=== PATIENT | female | born 1945 | race Caucasian/White ===

== ENCOUNTER 2016-05-04 09:54 | Outpatient (CLI) | payer MEDICARE, OTHER | END 2016-05-04 09:55 | disposition home or self-care (01) | DX: I48.0 Paroxysmal atrial fibrillation (principal); I63.9 Cerebral infarction, unspecified; R41.3 Other amnesia; M17.0 Bilateral primary osteoarthritis of knee ==

== ENCOUNTER 2016-06-16 09:44 | Outpatient (CLI) | payer MEDICARE, OTHER | END 2016-06-16 09:45 | disposition home or self-care (01) | DX: E55.9 Vitamin D deficiency, unspecified (principal); K62.5 Hemorrhage of anus and rectum; E53.8 Deficiency of other specified B group vitamins ==

== ENCOUNTER 2016-08-05 09:32 | Emergency (ER) | payer MEDICARE, OTHER ==
--- NOTE | 2016-08-05 10:31 | XRAY Preliminary Report ---
Exam: XR Chest 2 View PA/LAT IMPRESSION: Cardiovascular fullness with small left effusion in a patient with underlying COPD, possi ble congestive failure. [facility] SITE ID: [id number]
--- NOTE | 2016-08-05 10:33 | XRAY Report ---
EXAM: CHEST RADIOGRAPHY EXAM DATE: 08/05/2016 09:42 AM. CLINICAL HISTORY: Hypoxic. COMPARISON: None. TECHNIQUE: 2 views. FINDINGS: Lungs/Pleura: Hyper expanded with flattened diaphragm and coarse lung markings typical of COPD. Occas ional septal lines. No definite acute infiltrate, consolidation, or pneumothorax. Small left pleural effusion. Mediastinum: Mild cardiomegaly. Diffuse vascular fullness. Other: Degenerative changes. IMPRESSION: Cardiovascular fullness with small left effusion in a patient with underlying COPD, possi ble congestive failure. [facility] Referring Provider Line: [phone] SITE ID: [id number]
--- NOTE | 2016-08-05 10:46 | ED Physician Documentation ---
History of Present Illness - Stated complaint Stated Complaint: SOA - Chief complaint Chief Complaint: Resp - Additonal information Additional information: hx from pt 71 female hx a fib and CHF was on xarelto but dced it 2/2 side effects went to PMD today just for fup was found to be profoundly hypoxic pt denies fever cough CP palp she has had nafisa LE swelling recently Review of Systems Constitutional: denies: Fever, Chills Throat: denies: Sore throat Cardiac: denies: Chest pain / pressure, Palpitations Respiratory: reports: Dyspnea. 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 - Present Medications Home Medications: Ambulatory Orders Medication Instructions Recorded Confirmed Aspirin 81 mg PO DAILY 07/17/12 07/17/12 Atenolol 25 mg PO DAILY 07/17/12 07/17/12 Cholecalciferol (Vitamin D3) 55,000 unit PO DAILY 07/17/12 07/17/12 [Vitamin D-3] Levothyroxine Sodium [Synthroid] 88 mcg DAILY 07/17/12 07/17/12 Oxybutynin [Ditropan] 5 mg PO DAILY 07/17/12 07/17/12 Telmisartan [Micardis] 40 mg PO DAILY 07/17/12 07/17/12 oxyCODONE/ACET 5/325 [Percocet 5 1 each PO Q4-6H PRN #15 tablet 07/17/12 mg/325 mg] HYDROcod/ACETAM 5/325 [Vicodin 1 - 2 ea PO Q6H PRN #15 tablet 08/02/12 5/325] Ibuprofen [Motrin] 800 mg PO Q8H PRN #30 tablet 08/02/12 Furosemide [Lasix] 40 mg PO DAILY #7 tablet 08/05/16 - Allergies Allergies/Adverse Reactions: Allergies Allergy/AdvReac Type Severity Reaction Status Date / Time aspirin AdvReac Mild Nausea Verified 07/17/12 10:05 caffeine AdvReac Mild Nausea Verified 07/17/12 10:05 - Social History Does the pt smoke?: No Smoking Status: Never smoker Does the pt drink ETOH?: Yes Does the pt have substance abuse?: No - Immunizations Immunizations are current?: No Immunizations: TDAP >10years/unknown PD ED PE NORMAL - Vitals Vital signs reviewed: Yes - General General: Alert and oriented X 3 - Cardiac Cardiac: RRR - Respiratory Respiratory: Other (faint crackles nafisa bases) - Abdomen Abdomen: Soft, Non tender - Extremities Extremities: Other (+ nafisa edema) - Neuro Neuro: Alert and oriented X 3, No motor deficit Results - Vitals Vitals: Vital Signs - 24 hr 08/05/16 08/05/16 08/05/16 09:56 10:40 12:04 Temperature 36.3 C L Heart Rate 84 61 59 L Respiratory 24 18 16 Rate Blood Pressure 139/97 H 129/80 142/67 H O2 Saturation 90 L 98 100 08/05/16 08/05/16 08/05/16 12:42 14:32 14:38 Temperature Heart Rate 75 124 H 83 Respiratory 21 22 Rate Blood Pressure 146/78 H 159/88 H O2 Saturation 95 75 L 91 L Oxygen O2 Source Room air - EKG (time done) 1104 Rate: Rate (enter#) (63) Rhythm: Atrial fibrillation Intervals: Prolonged QT (< 1/2 R->R) Ischemia: Non specific changes - Labs Labs: Laboratory Tests 08/05/16 08/05/16 08/05/16 11:09 11:09 11:09 WBC 7.3 RBC 3.87 L Hgb 12.1 Hct 37.2 MCV 96.1 MCH 31.3 H MCHC 32.6 RDW 16.0 H Plt Count 165 MPV 8.7 Neut # 5.9 Lymph # 0.7 L Teller # 0.6 Eos # 0.1 Baso # 0.1 Absolute Nucleated RBC 0.00 Nucleated RBCs 0.0 D-Dimer 658.6 H Sodium 143 Potassium 4.4 Chloride 107 Carbon Dioxide 29 Anion Gap 7.0 BUN 35 H Creatinine 1.1 H Estimated GFR (MDRD) 49 L Glucose 99 Calcium 10.0 B-Natriuretic Peptide 08/05/16 11:09 WBC RBC Hgb Hct MCV MCH MCHC RDW Plt Count MPV Neut # Lymph # Teller # Eos # Baso # Absolute Nucleated RBC Nucleated RBCs D-Dimer Sodium Potassium Chloride Carbon Dioxide Anion Gap BUN Creatinine Estimated GFR (MDRD) Glucose Calcium B-Natriuretic Peptide 411 H - Rads (name of study) CXR Radiology: See rad report (cardiovascular fullness with small l pleural effusion possible CHF and underlying COPD) CTPA Radiology: See rad report (no PE, vascular distension c/w pulm edema) PD MEDICAL DECISION MAKING - ED course ED course: profound hypoxia out of proportion to CHF on CXR and BNP, will give lasix etc but must also consider PE, d dimer +, GFR too low for CTA, will rec admit for hypoxia and further eval for PE such as VQ VQ not available at [facility] at this time spoke to rad and pt got CT with mod contrast - no PE given a dose of lasix and now sats are better recommended admission but pt very reluctant explained I recommended serial trop and echo etc and she declines so i said if her O2 levels are 90% or better on RA would consider dc though not ideal care but sat drops to 60% with ambulation, I strongly strongly recommended she stay - explained my concerns and benefits of staying - pt still refuses- refuses while on O2 and sat is up so do not think irrational 2/2 hypoxia - I tried to enlist her family but they support her decision - I asked RT to set her up for home oxygen but she refuses to even stay to arrange that - pt left AMA despite attempts to convince her to stay -I called her PMD and they will call her and try to convince her to come back Departure - Departure Disposition: 07 Against Medical Advice Clinical Impression: Hypoxia Congestive heart failure Qualifiers: Congestive heart failure type: unspecified congestive heart failure type Congestive heart failure chronicity: unspecified congestive heart failure chronicity Qualified Code(s): I50.9 - Heart failure, unspecified Condition: Serious Instructions: ED CHF General Follow-Up: Renea Hall PA-C [Primary Care Provider] - Prescriptions: Furosemide [Lasix] 40 mg PO DAILY #7 tablet Comments: Your oxygen levels are dangerously low You do not have a blood clot in your lungs. You do have some congestive heart failure and evidence of right heart strain and coronary artery disease but this does not fully explain your very low oxygen levels I have strongly recommended that you stay in the hospital for further work up and care but you have declined. You are leaving against medical advise. By leaving you risk worsening symptoms, suffering permanent injury, loss of present life style, even I have asked the respiratory team to get you oxygen at home but it will take them a little while to get this set up - do not smoke while on oxygen If at any time you change your mind and want to get the recommended medical care , please come back to the hospital right away, we would be happy to see you and continue to take care of you Please follow up with your PMD for a recheck next working day - you need to have your kidney function checked at that time because you got a diuretic as well as CT contrast Discharge Date/Time: 08/05/16 15:36
[2016-08-05 11:19] LABS: BASOPHILS # (AUTO) 0.1 10^3/uL (0.0-0.1); BASOPHILS % (AUTO) 0.8 %; EOSINOPHILS # (AUTO) 0.1 10^3/uL (0.0-0.7); EOSINOPHILS % (AUTO) 0.9 %; HCT - HEMATOCRIT 37.2 % (37.0-47.0); HGB - HEMOGLOBIN 12.1 g/dL (12.0-16.0); LYMPHOCYTES # (AUTO) 0.7 10^3/uL (1.5-3.5); LYMPHOCYTES % (AUTO) 9.3 %; MEAN CORPUSCULAR HEMOGLOBIN 31.3 pg (27.0-31.0); MEAN CORPUSCULAR HGB CONC 32.6 g/dL (32.0-36.0); MEAN CORPUSCULAR VOLUME 96.1 fL (81.0-99.0); MEAN PLATELET VOLUME 8.7 fL (7.9-10.8); MONOCYTES # (AUTO) 0.6 10^3/uL (0.0-1.0); NEUTROPHILS # (AUTO) 5.9 10^3/uL (1.5-6.6); RED BLOOD COUNT 3.87 10^6/uL (4.20-5.40); UNCORRECTED WHITE BLOOD COUNT 7.3 x10^3/uL; WHITE BLOOD COUNT 7.3 x10^3/uL (4.8-10.8)
[2016-08-05 11:26] LABS: CREATININE 1.1 mg/dL (0.4-1.0); POTASSIUM 4.4 mmol/L (3.5-5.0)
[2016-08-05] MEDS ORDERED: FUROSEMIDE 40 MG/4 ML VIAL IVP STA (11:51)
[2016-08-05] MEDS ORDERED: FUROSEMIDE 40 MG/4 ML VIAL ONE (11:56)
[2016-08-05] MEDS ORDERED: IOPAMIDOL-300 100 ML VIAL IVP ONE (13:09)
--- NOTE | 2016-08-05 13:43 | CT Preliminary Report ---
Exam: CT Chest Angio (PE) IMPRESSION: 1. No evidence of pulmonary embolus. 2. Vascular distention with minimal interlobular septal thickening and trace bilateral pleural effusi ons consistent with volume overload/pulmonary edema. 3. Atherosclerosis including coronary atherosclerosis. [facility] SITE ID: [id number]
--- NOTE | 2016-08-05 13:46 | CT Report ---
EXAM: CT ANGIOGRAM CHEST EXAM DATE: 08/05/2016 01:14 PM. CLINICAL HISTORY: Hypoxia and elevated d-dimer. COMPARISON: None. TECHNIQUE: Routine helical imaging was performed through the chest in the pulmonary arterial phase. I V Contrast: Amt/type. Reconstructions: Coronal 3-D MIP reconstructions.Sagittal and coronal. In accordance with CT protocol optimization, one or more of the following dose reduction techniques w ere utilized for this exam: automated exposure control, adjustment of mA and/or KV based on patient s ize, or use of iterative reconstructive technique. FINDINGS: Pulmonary Arteries: Diagnostic quality: Adequate through the segmental arteries. No evidence for acute or chronic pulmona ry emboli. Mild pulmonary artery dilation centrally with rapid tapering. Lungs/Pleura: Trace bilateral pleural effusions with vascular distention and mild mosaic perfusion pa ttern. Slight interlobular septal thickening right lung base Mediastinum: Pretracheal lymph node measures up to 16 mm in short axis. No pericardial effusion. Kirill nary atherosclerosis. Thoracic Aorta: Unremarkable. Upper Abdomen: Unremarkable. Other: Mild degenerative disk disease thoracic spine. IMPRESSION: 1. No evidence of pulmonary embolus. 2. Vascular distention with minimal interlobular septal thickening and trace bilateral pleural effusi ons consistent with volume overload/pulmonary edema. 3. Atherosclerosis including coronary atherosclerosis. [facility] Referring Provider Line: [phone] SITE ID: [id number]
[2016-08-05 14:39] VITALS: BP 159/88
== END 2016-08-05 15:36 | disposition left against medical advice (07) ==
LOC: ED 09:32
DX: R09.02 Hypoxemia (principal); I11.0 Hypertensive heart disease with heart failure; I50.9 Heart failure, unspecified; I48.91 Unspecified atrial fibrillation; Z79.82 Long term (current) use of aspirin; I25.10 Atherosclerotic heart disease of native coronary artery without angina pectoris; Z53.20 Procedure and treatment not carried out because of patient's decision for unspecified reasons
CPT/HCPCS: 36415; 71020; 71275; 80048; 83880; 85025; 85379; 93005; 93010; 96374; 99283; 99284; Q9967; 81001; 81003; 87086

== ENCOUNTER 2017-02-07 10:20 | Outpatient (CLI) | payer MEDICARE, OTHER ==
[2017-02-07 19:15] LABS: BASOPHILS % (AUTO) 0.4 %; EOSINOPHILS % (AUTO) 0.3 %; HCT - HEMATOCRIT 41.7 % (37.0-47.0); HGB - HEMOGLOBIN 13.5 g/dL (12.0-16.0); LYMPHOCYTES # (AUTO) 0.8 10^3/uL (1.5-3.5); LYMPHOCYTES % (AUTO) 10.3 %; MEAN CORPUSCULAR HEMOGLOBIN 31.2 pg (27.0-31.0); MEAN CORPUSCULAR HGB CONC 32.3 g/dL (32.0-36.0); MEAN CORPUSCULAR VOLUME 96.5 fL (81.0-99.0); MEAN PLATELET VOLUME 10.7 fL (7.9-10.8); MONOCYTES # (AUTO) 0.4 10^3/uL (0.0-1.0); MONOCYTES % (AUTO) 5.9 %; NEUTROPHILS # (AUTO) 6.2 10^3/uL (1.5-6.6); NEUTROPHILS % (AUTO) 83.1 %; RED BLOOD COUNT 4.32 10^6/uL (4.20-5.40); RED CELL DISTRIBUTION WIDTH 15.3 % (12.0-15.0); UNCORRECTED WHITE BLOOD COUNT 7.4 x10^3/uL; WHITE BLOOD COUNT 7.4 x10^3/uL (4.8-10.8)
[2017-02-07 19:17] LABS: THYROID STIMULATING HORMONE 2.18 uIU/mL (0.34-5.60)
== END 2017-02-07 10:21 | disposition home or self-care (01) ==
LOC: LAB.WCP 10:20
PROVIDERS: ATTEND Physician Assistant Medical
DX: L65.9 Nonscarring hair loss, unspecified (principal)
CPT/HCPCS: 36415; 82607; 84443; 85025

== ENCOUNTER 2017-10-24 08:00 | Outpatient (CLI) | payer MEDICARE, OTHER ==
[2017-10-24 12:12] LABS: BASOPHILS % (AUTO) 0.3 %; EOSINOPHILS # (AUTO) 0.2 10^3/uL (0.0-0.7); EOSINOPHILS % (AUTO) 2.3 %; HGB - HEMOGLOBIN 13.6 g/dL (12.0-16.0); LYMPHOCYTES # (AUTO) 1.5 10^3/uL (1.5-3.5); LYMPHOCYTES % (AUTO) 20.5 %; MEAN CORPUSCULAR HEMOGLOBIN 31.8 pg (27.0-31.0); MEAN CORPUSCULAR HGB CONC 33.6 g/dL (32.0-36.0); MEAN CORPUSCULAR VOLUME 94.6 fL (81.0-99.0); MEAN PLATELET VOLUME 10.1 fL (7.9-10.8); MONOCYTES # (AUTO) 0.6 10^3/uL (0.0-1.0); MONOCYTES % (AUTO) 8.7 %; NEUTROPHILS % (AUTO) 68.2 %; PLT - PLATELET COUNT 153 10^3/uL (130-450); RED BLOOD COUNT 4.28 10^6/uL (4.20-5.40); RED CELL DISTRIBUTION WIDTH 14.5 % (12.0-15.0); WHITE BLOOD COUNT 7.3 x10^3/uL (4.8-10.8)
[2017-10-24 12:33] LABS: ALBUMIN/GLOBULIN RATIO 1.3 (1.0-2.2); ALKALINE PHOSPHATASE 58 IU/L (42-121); ALT ALANINE AMINOTRANSFERASE 10 IU/L (10-60); AST ASPARTATE AMINOTRANSFERASE 16 IU/L (10-42); BILIRUBIN,TOTAL 0.6 mg/dL (0.2-1.0); BUN - BLOOD UREA NITROGEN 25 mg/dL (6-20); CARBON DIOXIDE - CO2 29 mmol/L (21-32); CHLORIDE 104 mmol/L (101-111); CHOL/HDL RATIO 3.3 (<4.4); CHOLESTEROL 195 mg/dL; CREATININE 0.9 mg/dL (0.4-1.0); GFR - MDRD 62 (>89); GLUCOSE 100 mg/dL (70-100); HDL CHOLESTEROL 59 mg/dL; LDL CHOLESTEROL,CALCULATED 114 mg/dL; LDL/HDL RATIO 1.9 (<4.4); SODIUM 141 mmol/L (135-145); TOTAL PROTEIN 7.2 g/dL (6.7-8.2); VLDL CHOLESTEROL 22 mg/dL
[2017-10-24 12:40] LABS: THYROID STIMULATING HORMONE 3.15 uIU/mL (0.34-5.60)
[2017-10-25 10:03] LABS: HEPATITIS C ANTIBODY NON-REACTIVE (NON-REACTIVE)
== END 2017-10-24 08:01 ==
LOC: LAB.WCP 08:00
PROVIDERS: ATTEND Physician Assistant Medical
DX: I10 Essential (primary) hypertension (principal); E55.9 Vitamin D deficiency, unspecified; E53.8 Deficiency of other specified B group vitamins; I48.0 Paroxysmal atrial fibrillation; Z11.59 Encounter for screening for other viral diseases
CPT/HCPCS: 36415; 80053; 80061; 82306; 82607; 83721; 84443; 85025; 86803

== ENCOUNTER 2018-10-17 08:00 | Outpatient (CLI) | payer MEDICARE, OTHER ==
[2018-10-17 12:15] LABS: BASOPHILS % (AUTO) 0.4 %; EOSINOPHILS # (AUTO) 0.1 10^3/uL (0.0-0.7); EOSINOPHILS % (AUTO) 1.1 %; HGB - HEMOGLOBIN 12.6 g/dL (12.0-16.0); LYMPHOCYTES # (AUTO) 1.1 10^3/uL (1.5-3.5); LYMPHOCYTES % (AUTO) 14.3 %; MEAN CORPUSCULAR HEMOGLOBIN 29.9 pg (27.0-31.0); MEAN CORPUSCULAR HGB CONC 29.3 g/dL (32.0-36.0); MEAN CORPUSCULAR VOLUME 102.1 fL (81.0-99.0); MEAN PLATELET VOLUME 11.1 fL (7.9-10.8); MONOCYTES # (AUTO) 0.6 10^3/uL (0.0-1.0); NEUTROPHILS % (AUTO) 75.8 %; PLT - PLATELET COUNT 166 10^3/uL (130-450); RED BLOOD COUNT 4.21 10^6/uL (4.20-5.40); RED CELL DISTRIBUTION WIDTH 15.7 % (12.0-15.0); WHITE BLOOD COUNT 7.9 x10^3/uL (4.8-10.8)
[2018-10-17 12:36] LABS: ALBUMIN 4.4 g/dL (3.2-5.5); ALBUMIN/GLOBULIN RATIO 1.4 (1.0-2.2); ALKALINE PHOSPHATASE 56 IU/L (42-121); ALT ALANINE AMINOTRANSFERASE 13 IU/L (10-60); AST ASPARTATE AMINOTRANSFERASE 23 IU/L (10-42); BILIRUBIN,TOTAL 1.3 mg/dL (0.2-1.0); BUN - BLOOD UREA NITROGEN 25 mg/dL (6-20); CALCIUM 10.3 mg/dL (8.5-10.3); CARBON DIOXIDE - CO2 25 mmol/L (21-32); CHLORIDE 107 mmol/L (101-111); CHOL/HDL RATIO 2.9 (<4.4); CHOLESTEROL 140 mg/dL; CREATININE 1.1 mg/dL (0.4-1.0); GFR - MDRD 49 (>89); GLUCOSE 111 mg/dL (70-100); HDL CHOLESTEROL 49 mg/dL; LDL CHOLESTEROL,CALCULATED 76 mg/dL; LDL/HDL RATIO 1.6 (<4.4); SODIUM 143 mmol/L (135-145); TOTAL PROTEIN 7.6 g/dL (6.7-8.2); VLDL CHOLESTEROL 15 mg/dL
== END 2018-10-17 23:59 | disposition home or self-care (01) ==
LOC: LAB.WCP 08:00
PROVIDERS: ATTEND Physician Assistant Medical
DX: I10 Essential (primary) hypertension (principal); E53.8 Deficiency of other specified B group vitamins; E03.9 Hypothyroidism, unspecified
CPT/HCPCS: 36415; 80053; 80061; 82607; 83721; 84443; 85025

== ENCOUNTER 2019-04-15 14:57 | Outpatient (CLI) | payer MEDICARE, OTHER ==
--- NOTE | 2019-04-16 14:47 | XRAY Report ---
Reason: RIGHT 3RD FINGER PAIN Procedure Date: 04/15/2019 Accession Number: [id number] / [id number] Procedure: WCP - Finger(s) RT CPT Code: Addended Final Report FULL RESULT: EXAM: RIGHT RING FINGER DIGIT RADIOGRAPHY EXAM DATE: 04/15/2019 02:57 PM. CLINICAL HISTORY: RIGHT 3RD FINGER PAIN. COMPARISON: HAND 2 VIEW LT 04/15/2019 2:34 PM WRIST 3 VIEW LT 04/15/2019 2:36 PM. TECHNIQUE: 3 views. FINDINGS: Bones: There is a 0.9 x 0.8 x 0.5 cm lucent lesion within distal aspect of right ring finger middle phalanx. 1.5 x 4 mm ossific density along the dorsal aspect of DIP joint on the lateral view is concerning for displaced avulsion, originating from base of distal phalanx. Joints: Erosive changes along right ring finger distal interphalangeal joint with fragmented appearance. Soft Tissues: Mild ring finger soft tissue swelling. No soft tissue gas demonstrated. IMPRESSION: 1. Erosive changes involving right ring finger distal interphalangeal joint. Question septic joint with adjacent osteomyelitis versus erosive osteoarthritis or other process. 2. A 1.5 x 4 mm ossific density along the dorsal aspect of DIP joint on the lateral view is concerning for displaced avulsion, originating from base of distal phalanx. 3. A 9 mm ovoid cystic lesion within distal aspect of right ring finger middle phalanx. Question bone cyst or destructive change. 4. Recommend clinical correlation and consider MRI with and without contrast to further characterize. [facility] ADDENDUM: 04/16/19 15:13 The above call report findings were discussed with Renea Hall by Dr. Alex Wilson at 03:13 PM on 04/16/2019. Date of injury was approximately 2 months ago. Suggest hand surgery consult regarding right ring finger DIP joint and middle phalangeal abnormalities.
--- NOTE | 2019-04-16 14:55 | XRAY Report ---
Reason: LEFT WRIST PAIN Procedure Date: 04/15/2019 Accession Number: [id number] / [id number] Procedure: WCP - Wrist 3 View LT CPT Code: Final Report FULL RESULT: EXAM: LEFT WRIST RADIOGRAPHY EXAM DATE: 04/15/2019 02:57 PM. CLINICAL HISTORY: LEFT WRIST PAIN. COMPARISON: KNEE 2 VIEW BILAT 02/23/2016 4:18 PM. TECHNIQUE: 3 views. FINDINGS: Bones: Irregular contour along the base of ulnar styloid with probable displaced ulnar styloid avulsion. Joints: Left first carpometacarpal joint space narrowing with subchondral sclerosis. Probable adjacent secondary ossicle. Narrowing of radiocarpal joint space with [id number] appearance and subchondral sclerosis along the lunate and distal radius. Prominent scapholunate interval. Soft Tissues: Extensive atherosclerotic arterial calcifications. IMPRESSION: 1. Irregular contour along the base of ulnar styloid with probable displaced ulnar styloid avulsion. 2. Radiocarpal joint degenerative changes. Prominent scapholunate interval, raising concern for scapholunate advanced collapse. 3. Advanced first carpometacarpal joint degenerative changes. [facility]
--- NOTE | 2019-04-16 14:58 | XRAY Report ---
Reason: LEFT HAND PAIN Procedure Date: 04/15/2019 Accession Number: [id number] / [id number] Procedure: WCP - Hand 2 View LT CPT Code: Final Report FULL RESULT: EXAM: LEFT HAND RADIOGRAPHY EXAM DATE: 04/15/2019 02:57 PM. CLINICAL HISTORY: LEFT HAND PAIN. COMPARISON: WRIST 3 VIEW LT 04/15/2019 2:36 PM. TECHNIQUE: 2 views. FINDINGS: Bones: Probable displaced ulnar styloid avulsion. Joints: Narrowing of left index finger distal interphalangeal joint with marginal spurring. No subluxation. Advanced left first carpometacarpal joint degenerative changes as noted on wrist report same day. Soft Tissues: Athetotic arterial calcifications. IMPRESSION: 1. Probable displaced ulnar styloid avulsion. 2. Advanced left first carpometacarpal joint degenerative changes. 3. Mild to moderate left index finger distal interphalangeal joint degenerative changes. [facility]
== END 2019-04-15 14:58 | disposition home or self-care (01) ==
LOC: DI.WCP 14:57
PROVIDERS: ATTEND Physician Assistant Medical
DX: M19.032 Primary osteoarthritis, left wrist (principal); M18.12 Unilateral primary osteoarthritis of first carpometacarpal joint, left hand; M19.042 Primary osteoarthritis, left hand; M25.841 Other specified joint disorders, right hand; M89.9 Disorder of bone, unspecified
CPT/HCPCS: 73140

== ENCOUNTER 2019-04-26 08:31 | Outpatient (CLI) | payer MEDICARE, OTHER | END 2019-04-26 08:32 | disposition home or self-care (01) | LOC: DI 08:31 | PROVIDERS: ATTEND Physician Assistant Medical | DX: Z53.9 Procedure and treatment not carried out, unspecified reason (principal) ==

== ENCOUNTER 2019-05-09 08:00 | Outpatient (CLI) | payer MEDICARE, OTHER ==
[2019-05-09 18:49] LABS: BASOPHILS % (AUTO) 0.4 %; EOSINOPHILS # (AUTO) 0.2 10^3/uL (0.0-0.7); EOSINOPHILS % (AUTO) 2.2 %; HGB - HEMOGLOBIN 13.1 g/dL (12.0-16.0); LYMPHOCYTES # (AUTO) 2.3 10^3/uL (1.5-3.5); LYMPHOCYTES % (AUTO) 25.2 %; MEAN CORPUSCULAR HGB CONC 30.4 g/dL (32.0-36.0); MEAN CORPUSCULAR VOLUME 101.9 fL (81.0-99.0); MONOCYTES # (AUTO) 0.8 10^3/uL (0.0-1.0); MONOCYTES % (AUTO) 8.5 %; NEUTROPHILS # (AUTO) 5.8 10^3/uL (1.5-6.6); NEUTROPHILS % (AUTO) 63.4 %; PLT - PLATELET COUNT 176 10^3/uL (130-450); RED BLOOD COUNT 4.23 10^6/uL (4.20-5.40); RED CELL DISTRIBUTION WIDTH 13.2 % (12.0-15.0); WHITE BLOOD COUNT 9.2 x10^3/uL (4.8-10.8)
[2019-05-09 19:01] LABS: ALBUMIN 4.4 g/dL (3.2-5.5); ALBUMIN/GLOBULIN RATIO 1.2 (1.0-2.2); ALKALINE PHOSPHATASE 55 IU/L (42-121); ALT ALANINE AMINOTRANSFERASE 13 IU/L (10-60); AST ASPARTATE AMINOTRANSFERASE 22 IU/L (10-42); BILIRUBIN,TOTAL 0.7 mg/dL (0.2-1.0); BUN - BLOOD UREA NITROGEN 36 mg/dL (6-20); CALCIUM 10.3 mg/dL (8.5-10.3); CARBON DIOXIDE - CO2 22 mmol/L (21-32); CHLORIDE 104 mmol/L (101-111); CREATININE 1.3 mg/dL (0.4-1.0); GFR - MDRD 40 (>89); GLUCOSE 108 mg/dL (70-100); SODIUM 137 mmol/L (135-145); URIC ACID 10.9 mg/dL (2.6-7.2)
[2019-05-09 19:21] LABS: CRP - C-REACTIVE PROTEIN < 1.0 mg/dL (0-1.0)
== END 2019-05-09 23:59 | disposition home or self-care (01) ==
LOC: LAB.WCP 08:00
PROVIDERS: ATTEND Physician Assistant Medical
DX: I10 Essential (primary) hypertension (principal); M79.644 Pain in right finger(s)
CPT/HCPCS: 36415; 80053; 84550; 85025; 85651; 86140

== ENCOUNTER 2019-09-05 09:15 | Outpatient (CLI) | payer MEDICARE, OTHER ==
[2019-09-05 12:23] LABS: BASOPHILS # (AUTO) 0.1 10^3/uL (0.0-0.1); BASOPHILS % (AUTO) 0.9 %; EOSINOPHILS # (AUTO) 0.3 10^3/uL (0.0-0.7); EOSINOPHILS % (AUTO) 4.5 %; HGB - HEMOGLOBIN 14.5 g/dL (12.0-16.0); LYMPHOCYTES # (AUTO) 1.6 10^3/uL (1.5-3.5); LYMPHOCYTES % (AUTO) 23.8 %; MEAN CORPUSCULAR HEMOGLOBIN 31.9 pg (27.0-31.0); MEAN CORPUSCULAR HGB CONC 31.5 g/dL (32.0-36.0); MEAN CORPUSCULAR VOLUME 101.3 fL (81.0-99.0); MEAN PLATELET VOLUME 13.1 fL (7.9-10.8); MONOCYTES # (AUTO) 0.6 10^3/uL (0.0-1.0); MONOCYTES % (AUTO) 9.6 %; NEUTROPHILS # (AUTO) 4.1 10^3/uL (1.5-6.6); NEUTROPHILS % (AUTO) 60.9 %; PLT - PLATELET COUNT 149 10^3/uL (130-450); RED BLOOD COUNT 4.54 10^6/uL (4.20-5.40); RED CELL DISTRIBUTION WIDTH 13.5 % (12.0-15.0); WHITE BLOOD COUNT 6.7 x10^3/uL (4.8-10.8)
[2019-09-05 13:39] LABS: ALBUMIN/GLOBULIN RATIO 1.5 (1.0-2.2); ALKALINE PHOSPHATASE 86 IU/L (42-121); ALT ALANINE AMINOTRANSFERASE 33 IU/L (10-60); AST ASPARTATE AMINOTRANSFERASE 46 IU/L (10-42); BILIRUBIN,TOTAL 0.8 mg/dL (0.2-1.0); BUN - BLOOD UREA NITROGEN 53 mg/dL (6-20); CALCIUM 10.4 mg/dL (8.5-10.3); CARBON DIOXIDE - CO2 25 mmol/L (21-32); CHLORIDE 106 mmol/L (101-111); CHOL/HDL RATIO 4.2 (<4.4); CHOLESTEROL 176 mg/dL; CREATININE 1.8 mg/dL (0.4-1.0); GLUCOSE 115 mg/dL (70-100); HDL CHOLESTEROL 42 mg/dL; LDL CHOLESTEROL,CALCULATED 113 mg/dL; LDL/HDL RATIO 2.7 (<4.4); SODIUM 138 mmol/L (135-145); TOTAL PROTEIN 8.3 g/dL (6.7-8.2); VLDL CHOLESTEROL 21 mg/dL
== END 2019-09-05 23:59 | disposition home or self-care (01) ==
LOC: LAB.WCP 09:15
PROVIDERS: ATTEND Physician Assistant Medical
DX: I10 Essential (primary) hypertension (principal); E53.8 Deficiency of other specified B group vitamins; E03.9 Hypothyroidism, unspecified
CPT/HCPCS: 36415; 80053; 80061; 82607; 83721; 84443; 85025

== ENCOUNTER 2019-11-29 23:00 | Outpatient (CLI) | payer MEDICARE, OTHER | END 2019-11-29 23:01 | disposition critical access hospital (66) | LOC: EMS 23:00 | PROVIDERS: ATTEND Surgery | DX: Z04.3 Encounter for examination and observation following other accident (principal) | CPT/HCPCS: A0425; A0429 ==

== ENCOUNTER 2019-11-29 23:16 | Emergency (ER) | payer MEDICARE, OTHER ==
--- NOTE | 2019-11-30 00:05 | ED Physician Documentation ---
History of Present Illness - Stated complaint Stated Complaint: WEAKNESS - Chief complaint Chief Complaint: Abd Pain - History obtained from History obtained from: Patient - Additonal information Additional information: Patient is a 74-year-old female With a chief complaint of weakness brought in by ambulance. Her daughter is also present reports has had diarrhea off and on for the last month worse of the last week now with worsening weakness and has not been eating or drinking denies fevers or chest pain or shortness of breath. Review of Systems Constitutional: reports: Reviewed and negative Eyes: reports: Reviewed and negative Ears: reports: Reviewed and negative Nose: reports: Reviewed and negative Throat: reports: Reviewed and negative Cardiac: reports: Reviewed and negative Respiratory: reports: Reviewed and negative GI: reports: Diarrhea : reports: Reviewed and negative Skin: reports: Reviewed and negative Musculoskeletal: reports: Reviewed and negative Neurologic: reports: Generalized weakness Psychiatric: reports: Reviewed and negative Endocrine: reports: Reviewed and negative Immunocompromised: reports: Reviewed and negative PD PAST MEDICAL HISTORY - Past Medical History Cardiovascular: Hypertension : Kidney stones - Past Surgical History Past Surgical History: Yes 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 - Present Medications Home Medications: Ambulatory Orders Medication Instructions Recorded Confirmed Atenolol 25 mg PO DAILY 07/17/12 07/17/12 Cholecalciferol (Vitamin D3) 55,000 unit PO DAILY 07/17/12 07/17/12 [Vitamin D-3] Oxybutynin [Ditropan] 5 mg PO DAILY 07/17/12 07/17/12 Telmisartan [Micardis] 40 mg PO DAILY 07/17/12 07/17/12 Econazole Nitrate 85 gm TP 11/30/19 Nystatin/Triamcin 60 gm TP 11/30/19 11/30/19 [Nystatin-Triamcinolone Cream] Rivaroxaban [Xarelto] 2.5 mg PO 11/30/19 11/30/19 - Allergies Allergies/Adverse Reactions: Allergies Allergy/AdvReac Type Severity Reaction Status Date / Time hydrocodone Allergy Unknown Verified 11/30/19 00:14 aspirin AdvReac Mild Nausea Verified 07/17/12 10:05 caffeine AdvReac Mild Nausea Verified 07/17/12 10:05 - Social History Does the pt smoke?: No Smoking Status: Never smoker Does the pt drink ETOH?: Yes Does the pt have substance abuse?: No - Immunizations Immunizations are current?: No Immunizations: TDAP >10years/unknown PD ED PE NORMAL - Vitals Vital signs reviewed: Yes - General General: Alert and oriented X 3, No acute distress - HEENT HEENT: PERRL, Other (Dry mucous membranes) - Neck Neck: Supple, no meningeal sign - Cardiac Cardiac: No murmur, Other (Irregularly irregular) - Respiratory Respiratory: No respiratory distress, Clear bilaterally - Abdomen Abdomen: Normal bowel sounds, Soft, Non tender, Non distended - Derm Derm: Warm and dry - Extremities Extremities: No deformity - Neuro Neuro: Alert and oriented X 3, engineering mechanic 2-12 intact, No motor deficit, No sensory deficit, Normal speech - Psych Psych: Normal mood, Normal affect Results - Vitals Vitals: Vital Signs - 24 hr 11/29/19 11/29/19 11/30/19 23:25 23:56 00:26 Temperature 36.4 C L Heart Rate 52 L 46 L 46 L Respiratory 13 14 Rate Blood Pressure 112/90 H 101/78 81/63 L O2 Saturation 97 100 100 Oxygen O2 Source Room air - EKG (time done) 23:20 Rate: Other (no stemi) - Labs Labs: Laboratory Tests 11/29/19 11/29/19 11/29/19 23:58 23:58 23:58 WBC 8.2 RBC 4.45 Hgb 13.5 Hct 40.9 MCV 91.9 MCH 30.3 MCHC 33.0 RDW 15.0 Plt Count 125 L Neut # (Auto) 5.7 Lymph # (Auto) 0.9 L [place] # (Auto) 1.4 H Eos # (Auto) 0.1 Baso # (Auto) 0.0 Absolute Nucleated RBC 0.00 Nucleated RBC % 0.0 PT 27.1 H INR 2.6 H APTT 25.8 Sodium 136 Potassium 2.6 L Chloride 106 Carbon Dioxide 15 L Anion Gap 15.0 H BUN 97 H* Creatinine 6.8 H Estimated GFR (MDRD) 6 L Glucose 121 H Lactic Acid Calcium 8.8 Magnesium 1.2 L Total Bilirubin 1.1 H AST 90 H ALT 70 H Alkaline Phosphatase 94 Total Creatine Kinase 1457 H* Troponin I High Sens B-Natriuretic Peptide Total Protein 7.2 Albumin 4.1 Globulin 3.1 Albumin/Globulin Ratio 1.3 Lipase 107 H Urine Color Urine Clarity Urine pH Ur Specific [place] Urine Protein Urine Glucose (UA) Urine Ketones Urine Occult Blood Urine Nitrite Urine Bilirubin Urine Urobilinogen Ur Leukocyte Esterase Urine RBC Urine WBC Ur Squamous Epith Cells Urine Bacteria Ur Microscopic Review Urine Culture Comments Urine Opiates Screen Ur Oxycodone Screen Urine Methadone Screen Ur Propoxyphene Screen Ur Barbiturates Screen Ur Tricyclics Screen Ur Phencyclidine Scrn Ur Amphetamine Screen U Methamphetamines Scrn U Benzodiazepines Scrn Urine Cocaine Screen U Cannabinoids Screen Ethyl Alcohol < 5.0 11/29/19 11/29/19 11/29/19 23:58 23:58 23:58 WBC RBC Hgb Hct MCV MCH MCHC RDW Plt Count Neut # (Auto) Lymph # (Auto) [place] # (Auto) Eos # (Auto) Baso # (Auto) Absolute Nucleated RBC Nucleated RBC % PT INR APTT Sodium Potassium Chloride Carbon Dioxide Anion Gap BUN Creatinine Estimated GFR (MDRD) Glucose Lactic Acid 1.8 Calcium Magnesium Total Bilirubin AST ALT Alkaline Phosphatase Total Creatine Kinase Troponin I High Sens 64.6 H* B-Natriuretic Peptide 144 H Total Protein Albumin Globulin Albumin/Globulin Ratio Lipase Urine Color Urine Clarity Urine pH Ur Specific [place] Urine Protein Urine Glucose (UA) Urine Ketones Urine Occult Blood Urine Nitrite Urine Bilirubin Urine Urobilinogen Ur Leukocyte Esterase Urine RBC Urine WBC Ur Squamous Epith Cells Urine Bacteria Ur Microscopic Review Urine Culture Comments Urine Opiates Screen Ur Oxycodone Screen Urine Methadone Screen Ur Propoxyphene Screen Ur Barbiturates Screen Ur Tricyclics Screen Ur Phencyclidine Scrn Ur Amphetamine Screen U Methamphetamines Scrn U Benzodiazepines Scrn Urine Cocaine Screen U Cannabinoids Screen Ethyl Alcohol 11/30/19 01:35 WBC RBC Hgb Hct MCV MCH MCHC RDW Plt Count Neut # (Auto) Lymph # (Auto) [place] # (Auto) Eos # (Auto) Baso # (Auto) Absolute Nucleated RBC Nucleated RBC % PT INR APTT Sodium Potassium Chloride Carbon Dioxide Anion Gap BUN Creatinine Estimated GFR (MDRD) Glucose Lactic Acid Calcium Magnesium Total Bilirubin AST ALT Alkaline Phosphatase Total Creatine Kinase Troponin I High Sens B-Natriuretic Peptide Total Protein Albumin Globulin Albumin/Globulin Ratio Lipase Urine Color YELLOW Urine Clarity CLEAR Urine pH 5.0 Ur Specific [place] 1.025 Urine Protein 30 H Urine Glucose (UA) NEGATIVE Urine Ketones NEGATIVE Urine Occult Blood LARGE H Urine Nitrite NEGATIVE Urine Bilirubin NEGATIVE Urine Urobilinogen 0.2 (NORMAL) Ur Leukocyte Esterase NEGATIVE Urine RBC 0-5 Urine WBC 4-5 Ur Squamous Epith Cells MOD Squamous H Urine Bacteria Few Ur Microscopic Review INDICATED Urine Culture Comments NOT INDICATED Urine Opiates Screen NEGATIVE Ur Oxycodone Screen NEGATIVE Urine Methadone Screen NEGATIVE Ur Propoxyphene Screen NEGATIVE Ur Barbiturates Screen NEGATIVE Ur Tricyclics Screen NEGATIVE Ur Phencyclidine Scrn NEGATIVE Ur Amphetamine Screen NEGATIVE U Methamphetamines Scrn NEGATIVE U Benzodiazepines Scrn NEGATIVE Urine Cocaine Screen POSITIVE H U Cannabinoids Screen NEGATIVE Ethyl Alcohol PD MEDICAL DECISION MAKING - ED course Complexity details: reviewed old records, reviewed results, re-evaluated patient, considered differential (acute renal failure secondary to dehydration), d/w patient, d/w family, d/w customer care voice consultant (dr. izaguirre recomends transfer to a higher level of care) - Consults Consults: Discussed case with (dr. nannette hernandez Business Analytics Manager at [facility], will accept this patient. ) - Critical Care Time(min): 30 Time Includes: Direct patient care, Review records, Reassess patient, Document care, Coordinate care, Medical consult Data interpretation: Labs, CXR Procedures included in critical care time: Peripheral IV Procedures excluded from critical care time: EKG Departure - Departure Disposition: 02 Transfer Acute Care Hosp Clinical Impression: Acute renal failure Qualifiers: Acute renal failure type: unspecified Qualified Code(s): N17.9 - Acute kidney failure, unspecified Rhabdomyolysis Qualifiers: Rhabdomyolysis type: non-traumatic Qualified Code(s): M62.82 - Rhabdomyolysis Condition: Stable
[2019-11-30] MEDS ORDERED: SODIUM CHLORIDE 0.9% 1,000 ML IV STA ×3 (00:13→01:09)
[2019-11-30] MEDS ORDERED: ONDANSETRON 4 MG/2 ML VIAL IVP STA (00:13)
[2019-11-30 00:25] LABS: BASOPHILS % (AUTO) 0.5 %; EOSINOPHILS # (AUTO) 0.1 10^3/uL (0.0-0.7); EOSINOPHILS % (AUTO) 1.5 %; HGB - HEMOGLOBIN 13.5 g/dL (12.0-16.0); LYMPHOCYTES # (AUTO) 0.9 10^3/uL (1.5-3.5); LYMPHOCYTES % (AUTO) 10.9 %; MEAN CORPUSCULAR HEMOGLOBIN 30.3 pg (27.0-31.0); MEAN CORPUSCULAR VOLUME 91.9 fL (81.0-99.0); MONOCYTES # (AUTO) 1.4 10^3/uL (0.0-1.0); NEUTROPHILS # (AUTO) 5.7 10^3/uL (1.5-6.6); NEUTROPHILS % (AUTO) 69.6 %; PLT - PLATELET COUNT 125 10^3/uL (130-450); RED BLOOD COUNT 4.45 10^6/uL (4.20-5.40); WHITE BLOOD COUNT 8.2 x10^3/uL (4.8-10.8)
[2019-11-30 00:31] LABS: INR 2.6 (0.8-1.2); PT - PROTHROMBIN TIME 27.1 secs (9.9-12.6)
[2019-11-30 00:41] LABS: PARTIAL THROMBOPLASTIN TIME 25.8 secs (24.9-33.3)
[2019-11-30 00:53] LABS: ALBUMIN 4.1 g/dL (3.2-5.5); ALBUMIN/GLOBULIN RATIO 1.3 (1.0-2.2); ALKALINE PHOSPHATASE 94 IU/L (42-121); ALT ALANINE AMINOTRANSFERASE 70 IU/L (10-60); AST ASPARTATE AMINOTRANSFERASE 90 IU/L (10-42); BILIRUBIN,TOTAL 1.1 mg/dL (0.2-1.0); CALCIUM 8.8 mg/dL (8.5-10.3); CARBON DIOXIDE - CO2 15 mmol/L (21-32); CHLORIDE 106 mmol/L (101-111); CREATININE 6.8 mg/dL (0.4-1.0); GLUCOSE 121 mg/dL (70-100); LIPASE 107 U/L (22-51); MAGNESIUM 1.2 mg/dL (1.7-2.8); SODIUM 136 mmol/L (135-145); TOTAL PROTEIN 7.2 g/dL (6.7-8.2)
[2019-11-30 01:01] LABS: BUN - BLOOD UREA NITROGEN 97 mg/dL (6-20); CK- CREATINE KINASE 1457 IU/L (22-269)
[2019-11-30 01:41] LABS: MUDS CUTOFF CONCENTRATIONS CUTOFF CONC BELOW:
[2019-11-30 01:44] LABS: CLARITY,URINE CLEAR (CLEAR); GLUCOSE, URINE (UA) NEGATIVE (NEGATIVE); KETONES,URINE (UA) NEGATIVE (NEGATIVE); LEUKOCYTE ESTERASE, URINE NEGATIVE (NEGATIVE); NITRITE,URINE NEGATIVE (NEGATIVE); OCCULT BLOOD,URINE LARGE (NEGATIVE); PROTEIN,URINE 30 mg/dL (NEGATIVE); UROBILINOGEN,URINE 0.2 (NORMAL) E.U./dL (NORMAL)
[2019-11-30 01:48] LABS: BILIRUBIN,URINE NEGATIVE (NEGATIVE); ICTOTEST,URINE NEGATIVE
[2019-11-30 02:04] LABS: BACTERIA,URINE Few /HPF (None Seen); RBC,URINE 0-5 /HPF (0-5); SQUAMOUS EPITHELIAL CELL,UR MOD Squamous (<= Few)
[2019-11-30 02:05] LABS: AMPHETAMINE SCREEN,URINE NEGATIVE (NEGATIVE); BENZODIAZEPINES SCREEN, URINE NEGATIVE (NEGATIVE); COCAINE SCREEN URINE POSITIVE (NEGATIVE); METHADONE SCREEN, URINE NEGATIVE (NEGATIVE); METHAMPHETAMINES SCREEN, URINE NEGATIVE (NEGATIVE); OPIATE SCREEN, URINE NEGATIVE (NEGATIVE); OXYCODONE SCREEN, URINE NEGATIVE (NEGATIVE); PROPOXYPHENE SCREEN, URINE NEGATIVE (NEGATIVE); TRICYCLIC ANTIDEPRESSANT,URINE NEGATIVE (NEGATIVE)
[2019-11-30 03:44] VITALS: BP 102/77
--- NOTE | 2019-11-30 09:16 | XRAY Report ---
PROCEDURE: Chest 1 View X-Ray INDICATIONS: weakness TECHNIQUE: One view of the chest was acquired. COMPARISON: History of breast and CT angiogram 08/05/2016 FINDINGS: Surgical changes and devices: None. Lungs and pleura: No pleural effusions or pneumothorax. No focal infiltrates are seen. Minimal pu lmonary vascular congestion can be seen. Mediastinum: Mediastinal contours appear normal. Heart size is moderately enlarged. Bones and chest wall: No suspicious bony lesions. Age-appropriate degenerative changes are seen. O verlying soft tissues appear unremarkable. IMPRESSION: Moderate cardiomegaly. There is minimal pulmonary vascular congestion. Note: No significant discrepancy from the preliminary report. Reviewed by: Ino Kimball MD on 11/30/2019 8:15 AM JORGE Approved by: Ino Kimball MD on 11/30/2019 8:15 AM JORGE Station ID: [id number]
== END 2019-11-30 04:14 | disposition short-term general hospital (02) ==
LOC: EDUNIT# → ED 23:16
DX: N17.9 Acute kidney failure, unspecified (principal); M62.82 Rhabdomyolysis; I10 Essential (primary) hypertension; Z79.899 Other long term (current) drug therapy
CPT/HCPCS: 36415; 71045; 80053; 80306; 80320; 81001; 81003; 82550; 83605; 83690; 83735; 83880; 84484; 85025; 85610; 85730; 87086; 93005; 96361; 96374; 99291

== ENCOUNTER 2019-12-09 19:04 | Outpatient (CLI) | payer MEDICARE, OTHER | END 2019-12-09 19:05 | disposition EMS.NT | LOC: EMS 19:04 | PROVIDERS: ATTEND Surgery | DX: R56.9 Unspecified convulsions (principal) ==